=== PATIENT | male | born 1955 | race Caucasian/White ===

== ENCOUNTER → 2019-12-23 10:37 | Outpatient (CLI) | payer MEDICARE, BC | END | disposition home or self-care (01) | LOC: D.CT 10:30 | PROVIDERS: ATTEND Family Medicine | DX: R10.9 Unspecified abdominal pain (principal); K57.92 Diverticulitis of intestine, part unspecified, without perforation or abscess without bleeding ==

== ENCOUNTER → 2019-12-29 08:03 | Outpatient (CLI) | payer MEDICARE, BC | END | disposition home or self-care (01) | LOC: D.NM 08:03 | PROVIDERS: ATTEND Family Medicine | DX: K80.70 Calculus of gallbladder and bile duct without cholecystitis without obstruction (principal) ==

== ENCOUNTER 2020-01-29 05:49 | Day surgery (SDC) | payer MEDICARE, BC ==
[2020-01-28 12:21] LABS: BASOPHILS 0.4 % (0-2); EOSINOPHILS 2.2 % (0-7); HEMATOCRIT 49.8 % (42.0-54.0); HEMOGLOBIN 16.4 g/dL (13.5-17.5); IMMATURE GRANULOCYTES 0.2 % (0-5); LYMPHOCYTES 24.9 % (15-50); MCHC 32.9 g/dL (31.0-37.0); MEAN PLATELET VOLUME 10.2 fL (7.4-10.4); MONOCYTES 10.8 % (2-11); NEUTROPHILS 61.5 % (40-80); PLATELET COUNT 195 10x3/uL (130-400); RBC 5.47 10x6/uL (4.20-6.10); RDW 14.2 % (11.5-14.5); WBC 8.5 10x3/uL (4.8-10.8)
[2020-01-28 12:36] LABS: ANION GAP 10.1 mmol/L (8-16); CALCIUM 8.9 mg/dL (8.5-10.1); CARBON DIOXIDE 29.3 mmol/L (21.0-32.0); CREATININE - SERUM 1.2 mg/dL (0.6-1.3); POTASSIUM - SERUM 4.4 mmol/L (3.5-5.1)
[~2020-01-29] VITALS: Ht 182.9 cm; Wt 115.7 kg
[~2020-01-29 05:49] MED LIST: BAYER CHEWABLE81 MG PO; VERELAN180 MG PO
[2020-01-29 06:28] VITALS: BP 147/83; Ht 182.9 cm; Wt 115.7 kg
[2020-01-29] MEDS ORDERED: HYDROCODON-ACE1 EA10 PO (08:55)
--- NOTE | 2020-01-29 09:24 | NUR ---
ONE TIME DOSE OF HYDRALAZINE PROVIDED FOR SBP >180. WILL CONTINUE TO MONITER.
--- NOTE | 2020-01-29 14:08 | NUR ---
1114-AMBULATED TO RESTROOM AND VOIDED WITHOUT COMPLICATIONS.VSS.DENIES PAIN. BANDAIDS TO ABD CDI. NO DISTRESS. NO N/V. TOLERATED PUDDING AND WATER. REVIEWED POST OP INSTRUCTIONS AND WILL CALL SATURDAY TO SCHEDULE 2-3 WEEK FOLLOW UP DUE TO OFFICE BEING CLOSED FOR THE HOLIDAY. REMOVED IV WITH CATH INTACT,DISPOSED INTO SHARPS,COVERED WITH GUAZE,SECURED WITH MEDIPORE TAPE.
--- NOTE | 2020-01-29 14:10 | NUR ---
1125-PT DRESSED. ESCORTED OUT VIA W/C BY STAFF WITH AWAITING TO DRIVE HOME.
--- NOTE | 2020-02-02 13:54 | OP ---
PATIENT NAME: GREG JAEGER MEDICAL RECORD: [id number] :53 LOCATION:D.OPS ADMISSION DATE: SURGEON: AMEYA HOLDEN MD DATE OF OPERATION: 01/29/2020 PREOPERATIVE DIAGNOSES: 1. Gallstones. 2. Gastroesophageal reflux disease. 3. Cardiac arrhythmia. 4. Chronic obstructive pulmonary disease. POSTOPERATIVE DIAGNOSES: 1. Gallstones. 2. Gastroesophageal reflux disease. 3. Cardiac arrhythmia. 4. Chronic obstructive pulmonary disease. PROCEDURE: Laparoscopic cholecystectomy. SURGEON: Ameya Holden MD REPORT OF PROCEDURE: The patient's abdomen was prepped and draped in sterile fashion. A cutdown was made on the superior aspect of the umbilicus, 0 Vicryls were placed on the fascia bilaterally and the fascia was incised with 15-blade. I then bluntly entered the peritoneal cavity and placed a 12-mm Cesar port. Under direct visualization, a 5-mm trocar was placed in the epigastrium and two more 5-mm trocars were placed in the right subcostal region. The gallbladder was grasped and elevated. There were no signs of inflammatory changes. The cystic artery and cystic duct were dissected free and I had my critical view of safety. These structures were clipped proximally and distally and ligated in standard fashion. The gallbladder was taken off the liver bed using electrocautery and placed into an Endo Catch bag. Any bleeding from the liver bed was then treated with electrocautery. The ports and insufflation were then removed and the gallbladder was taken out through the umbilicus. The umbilical fascia was closed with interrupted 0 Vicryls times 3. The wounds were irrigated out with normal saline and infused with 10 mL of 0.25% Marcaine with epinephrine. The skin incisions were all closed with subcutaneous 5-0 Monocryl and dressed appropriately. COMPLICATIONS: None. CONDITION: Stable. ANESTHESIA: General endotracheal and local. BLOOD LOSS: Minimal. TRANSINT:[id number] Voice Confirmation ID: [id number] DOCUMENT ID: [id number] OPERATIVE REPORT [id number] JAEGERGREG Hale AMEYA HOLDEN MD at 1354 CC: VICENTE INFANTE [id number] DICTATION DATE: 01/29/20 0853 [employer] PROJECT MANAGER: 01/29/20 1526 [facility] 01/29/20 [facility] [address] [place] [address]
== END 2020-01-29 11:25 | disposition home or self-care (01) ==
LOC: D.OPS 05:49 → D.PAN 07:30 → D.OPS 07:30
PROVIDERS: ATTEND Surgery
DX: K80.80 Other cholelithiasis without obstruction (principal); K21.9 Gastro-esophageal reflux disease without esophagitis; I49.9 Cardiac arrhythmia, unspecified; J44.9 Chronic obstructive pulmonary disease, unspecified